=== PATIENT | male | born 1960 | race Caucasian/White ===

== ENCOUNTER → 2025-02-08 13:22 | Outpatient (CLI) | payer SELFPAY ==
--- NOTE | 2025-02-08 13:26 | DI.MRI.S_ITS ---
PROCEDURE: MR SHOULDER LT WO CON INDICATIONS: LT SHOULDER PAIN TECHNIQUE: Noncontrast oblique coronal T2 fast spin echo with fat saturation, oblique sagittal T1 spin echo and T2 fast spin echo with fat saturation, axial T1 spin echo and T2 fast spin echo with fat saturation through the shoulder. COMPARISON: None. FINDINGS: Image quality: Excellent. Rotator cuff: Low to moderate grade bursal surface partial-thickness tear involving distal supraspinatus and infraspinatus at their insertions on humeral head extending to musculotendinous junction. Distal subscapularis tendinosis is seen. No full- thickness rotator cuff tendon rupture. Sagittal images demonstrate no significant rotator cuff muscle atrophy. Bones and bursae: Moderate acromioclavicular joint osteoarthritic changes are seen with significant joint space narrowing, subchondral sclerosis and edema with subcortical cystic changes and downward osteophyte formation depressing on musculotendinous junction of supraspinatus. No acute fracture or dislocation. Type 1 acromion without os acromiale. Small joint effusion and subacromial subdeltoid bursal fluid, no loose bodies. Capsule and soft tissues: Signal abnormality and fraying involving superior anterior glenoid labrum concerning for subtle superior anterior glenoid labral tear. The long head of the biceps tendon appears thickened near its proximal insertion. IMPRESSION: 1. Low to moderate grade bursal surface partial-thickness tear involving distal supraspinatus and infraspinatus at their insertions on humeral head extending to musculotendinous junction. Distal subscapularis tendinosis. No full-thickness rotator cuff tendon rupture. No significant rotator cuff muscle atrophy. 2. Moderate acromioclavicular joint osteoarthritis as above. No fracture or dislocation. Small amount of joint fluid and subacromial subdeltoid bursal fluid concerning for bursitis. No loose bodies. 3. Suggestion of subtle superior anterior left glenoid labral tear. 4. Proximal long head of biceps tendinosis. Dictated by: Oscar Saez M.D. on 02/08/2025 at 15:55 Approved by: Oscar Saez M.D. on 02/08/2025 at 16:03
== END ==
PROVIDERS: Referring Provider Physician Assistant; Visit Provider Physician Assistant
DX: M75.112 Incomplete rotator cuff tear or rupture of left shoulder, not specified as traumatic (principal); M19.012 Primary osteoarthritis, left shoulder; M25.512 Pain in left shoulder
CPT/HCPCS: 73221